=== PATIENT | male | born 1985 | race Caucasian/White ===

== ENCOUNTER 2017-08-23 22:10 | Emergency (ER) | payer BC ==
[2017-08-23 23:06] LABS: ABS Basophils 0 10^3/ul (0-0.2); ABS Eosinophils 1.5 10^3/ul (0-0.6); ABS Lymphocytes 2.8 10^3/ul (1.0-4.8); ABS Monocytes 0.4 10^3/ul (0-0.8); ABS Neutrophils 5.8 10^3/ul (1.5-7.7); ABS Nucleated RBC 0 10^3/ul; Eosinophil % 14.3 % (0-6); Hematocrit 40 % (42-52); Hemoglobin 13.8 g/dl (14.0-18.0); Lymphocyte % 26.2 % (25-47); Mean Corpuscular HGB Conc 34 g/dl (31-36); Mean Corpuscular Hemoglobin 31 pg (27-31); Mean Corpuscular Volume 92 fL (80-94); Mean Platelet Volume 8 um3 (7.4-10.4); Nucleated Red Blood Cells % 0; Platelet Count 270 10^3/ul (150-450); Red Cell Distribution Width 13 % (10.5-15); White Blood Count 10.5 10^3/ul (3.5-10.8)
[2017-08-23 23:25] LABS: EGFR Non-African American 113.7 (>60)
[2017-08-24 02:09] VITALS: BP 104/69
--- NOTE | 2017-08-24 05:01 | ED ---
Becky Gomez Julia, scribed for Andreas Villalta MD on 08/24/17 at 0007 . HPI Chest Pain - HPI Summary HPI Summary: This patient is a 31 year old M BIBA to [facility] accompanied by aranza with a chief complaint of sudden chest pain and tightness with SOB while driving tonight that lasted 30-40 minutes. Patient reports racing heart but did not detect when checking own heart rate. reports arm numbness with onset of pain. Patient denies anxiety, any other pain, and LE edema. Patient rates the pain a 6/10 at sudden onset and 2/10 currently. Patient given nitox3 and 324mg of ASA by EMS. Patient reports improvement with nitro. Patient has hx of atrial septal defects as a child and current HLD. - History of Current Complaint Chief Complaint: EDChestPainROMI Time Seen by Provider: 08/23/17 23:06 Hx Obtained From: Patient Onset/Duration: Started Hours Ago, Still Present - improved Timing: Lasting Minutes - 30-40 Initial Severity: Moderate Current Severity: Mild Pain Intensity: 2 Pain Scale Used: 0-10 Numeric Chest Pain Radiates: Yes Chest Pain Radiates To:: Arm Character: Tightness Alleviating Factor(s): NTG 123, EMS Tx Associated Signs and Symptoms: Positive: Chest Pain - arm pain, Numbness, Shortness of Breath - Allergy/Home Medications Allergies/Adverse Reactions: Allergies Allergy/AdvReac Type Severity Reaction Status Date / Time MS Penicillins [PCN] Allergy Rash Verified 08/23/17 22:20 PMH/Surg Hx/FS Hx/Imm Hx Cardiovascular History: Reports: Hx Hypercholesterolemia, Other Cardiovascular Problems/Disorders - atrial septal defects EENT History: Denies: Hx Deafness Infectious Disease History: No Infectious Disease History: Denies: Traveled Outside the [place] in Last 30 Days - Family History Known Family History: Positive: Cardiac Disease - Social History Alcohol Use: Rare Substance Use Type: Reports: None Smoking Status (MU): Former Smoker Review of Systems Positive: Palpitations, Chest Pain Positive: Shortness Of Breath Negative: Myalgia, Edema Positive: Numbness - r arm Negative: Anxious All Other Systems Reviewed And Are Negative: Yes Physical Exam - Summary Physical Exam Summary: Appearance: Well appearing, no pain distress Skin: warm, dry, reflects adequate perfusion Head/face: normal Eyes: EOMI, KAREN ENT: normal Neck: supple, non-tender Respiratory: CTA, breath sounds present Cardiovascular: RRR, pulses symmetrical, sternotomy scar Abdomen: non-tender, soft Bowel: present Musculoskeletal: normal, strength/ROM intact Neuro: normal, sensory motor intact, A&Ox3 Triage Information Reviewed: Yes Vital Signs On Initial Exam: Initial Vitals Temp Pulse Resp BP Pulse Ox 98.1 F 79 19 119/78 97 08/23/17 22:10 08/23/17 22:10 08/23/17 22:10 08/23/17 22:10 08/23/17 22:10 Vital Signs Reviewed: Yes Diagnostics - Vital Signs Vital Signs Temp Pulse Resp BP Pulse Ox 08/23/17 22:10 98.1 F 79 19 119/78 97 - Laboratory Lab Results: Lab Results 08/23/17 08/23/17 08/23/17 Range/Units 22:50 22:50 22:50 WBC 10.5 (3.5-10.8) 10^3/ul RBC 4.40 (4.0-5.4) 10^6/ul Hgb 13.8 L (14.0-18.0) g/dl Hct 40 L (42-52) % MCV 92 (80-94) fL MCH 31 (27-31) pg MCHC 34 (31-36) g/dl RDW 13 (10.5-15) % Plt Count 270 (150-450) 10^3/ul MPV 8 (7.4-10.4) um3 Neut % (Auto) 55.2 (38-83) % Lymph % (Auto) 26.2 (25-47) % [place] % (Auto) 4.0 (1-9) % Eos % (Auto) 14.3 H (0-6) % Baso % (Auto) 0.3 (0-2) % Absolute Neuts (auto) 5.8 (1.5-7.7) 10^3/ul Absolute Lymphs (auto) 2.8 (1.0-4.8) 10^3/ul Absolute Monos (auto) 0.4 (0-0.8) 10^3/ul Absolute Eos (auto) 1.5 H (0-0.6) 10^3/ul Absolute Basos (auto) 0 (0-0.2) 10^3/ul Absolute Nucleated RBC 0 10^3/ul Nucleated RBC % 0 Sodium 137 (133-145) mmol/L Potassium 3.8 (3.5-5.0) mmol/L Chloride 104 (101-111) mmol/L Carbon Dioxide 27 (22-32) mmol/L Anion Gap 6 (2-11) mmol/L BUN 9 (6-24) mg/dL Creatinine 0.79 (0.67-1.17) mg/dL Est GFR ( Amer) 146.2 (>60) Est GFR (Non-Af Amer) 113.7 (>60) BUN/Creatinine Ratio 11.4 (8-20) Glucose 93 (70-100) mg/dL Lactic Acid 1.8 (0.5-2.0) mmol/L Calcium 9.8 (8.6-10.3) mg/dL Total Bilirubin 0.80 (0.2-1.0) mg/dL AST 17 (13-39) U/L ALT 25 (7-52) U/L Alkaline Phosphatase 82 (34-104) U/L Troponin I 0.00 (<0.04) ng/mL Total Protein 7.2 (6.4-8.9) g/dL Albumin 4.4 (3.2-5.2) g/dL Globulin 2.8 (2-4) g/dL Albumin/Globulin Ratio 1.6 (1-3) Result Diagrams: 08/23/17 22:50 08/23/17 22:50 Lab Statement: Any lab studies that have been ordered have been reviewed, and results considered in the medical decision making process. - Radiology CXR Radiology Interpretation Completed By: ED Physician - negative - EKG 2 Cardiac Rate: NL - at 77 BPM EKG Rhythm: Sinus Rhythm EKG Interpretation: nml axis nml interval, flipped T wave in V2 and flattened in V3 Re-Evaluation - Re-Evaluation 1 Re-Evaluation Time: 00:41 Change: Improved - symptoms resolved Chest Pain Course/Dx - Course Course Of Treatment: HEART score of 2-3. Pt without pain here. Had nitro prior to arrival. ? some benefit. ECG non-specific. Trop x 2 is neg. Recommend close outpt f/u with PMD, possible outpt stress test. Return precautions given. 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 - Chest Pain Differential Diagnosis/HQI/PQRI: Acute [place], ACS, Angina, GI Disease - Diagnoses Provider Diagnoses: Chest pain Discharge - Discharge Plan Condition: Good Disposition: HOME Prescriptions: Aspirin [Aspirin Childrens 81 MG] 81 mg PO DAILY #30 chw Famotidine TAB* [Pepcid 20 MG TAB*] 20 mg PO BID #20 tab Patient Education Materials: Chest Pain (ED) Forms: *Work Release Referrals: Law Alvarez MD [Primary Care Provider] - Additional Instructions: Call your doctor first thing in the morning. Have them reevaluate you and schedule you for outpatient stress test or other tests. Return with repeat symptoms, worse, new symptoms or other concerns. No strenuous activity. The documentation as recorded by the Becky rodriguez Julia accurately reflects the service I personally performed and the decisions made by me, Andreas Villalta MD.
--- NOTE | 2017-08-24 07:47 | RAD ---
INDICATION: Chest pain. COMPARISON: There are no prior studies available for comparison. TECHNIQUE: A portable view of the chest was obtained. FINDINGS: The patient is status post sternotomy. The heart appears mildly prominent which is likely artifactual due to portable technique and underinflation of the lungs. The lungs are underinflated and clear. No pleural effusion is seen. IMPRESSION: NO EVIDENCE FOR ACUTE DISEASE.
== END 2017-08-24 02:20 | disposition home or self-care (01) ==
LOC: ED 22:10
DX: R07.9 Chest pain, unspecified (principal); M79.603 Pain in arm, unspecified; R06.02 Shortness of breath; R00.2 Palpitations; Z87.891 Personal history of nicotine dependence
CPT/HCPCS: 36415; 71045; 80053; 83605; 84484; 85025; 93005; 99283